=== PATIENT | female | born 1985 | race Caucasian/White ===

== ENCOUNTER 2022-03-04 03:36 | Outpatient (CLI) | payer MEDICAID, SELFPAY ==
[2022-03-04 14:11] LABS: HCG Quant, Pregnancy 84 mIU/mL (1-3)
== END 2022-03-04 03:37 | disposition home or self-care (01) ==
LOC: LBO 03:36
PROVIDERS: PCP Family Medicine; Visit Provider Obstetrics & Gynecology
DX: O03.4 Incomplete spontaneous abortion without complication (principal)
CPT/HCPCS: 36415; 84702

== ENCOUNTER 2022-03-18 03:50 | Outpatient (CLI) | payer MEDICAID, SELFPAY ==
[2022-03-18 14:36] LABS: HCG Quant, Pregnancy 1 mIU/mL (1-3)
== END 2022-03-18 03:51 | disposition home or self-care (01) ==
LOC: LBO 03:50
PROVIDERS: PCP Family Medicine; Visit Provider Obstetrics & Gynecology
DX: O03.4 Incomplete spontaneous abortion without complication (principal)
CPT/HCPCS: 36415; 84702

== ENCOUNTER 2022-08-15 09:32 | Outpatient (CLI) | payer BC, SELFPAY ==
[2022-08-15 10:07] LABS: Abs Immature Grans 0.09 10^3/uL (0.0-0.06); Absolute Eosinophil Count 0.15 10^3/uL (0.0-0.7); Absolute Lymphocyte Count 1.75 10^3/uL (1.2-3.4); Absolute Monocyte Count 0.51 10^3/uL (0.1-0.8); Basophils % 0.2; Eosinophils % 1.2; HCT 32.4 % (36.0-46.0); HGB 11.3 g/dL (11.2-15.7); Immature Grans % 0.7; Lymphocytes % 14.1; MCH 30.5 pg (27.0-33.0); MCHC 34.9 % (32.0-36.0); MCV 87 fL (80-95); MPV 11.1 fL (8.0-11.0); Monocytes % 4.1; Neutrophils % 79.7; Platelet Count 154 10^3/uL (130-400); RBC 3.71 10^6/uL (3.93-5.22); RDW 14.1 % (11.7-14.6); RDW-SD 44.4 fL
[2022-08-15 10:12] LABS: Absolute Basophil Count 0.02 10^3/uL (0.0-0.2); Absolute Neutrophil Count 9.88 10^3/uL (1.2-6.7)
[2022-08-15 10:16] LABS: Glucose,1 Hr (Glucola) 121 mg/dL (80-140)
[2022-08-17 15:20] LABS: HIV-1/2 Ag & Ab Screen Negative (Negative)
[2022-08-18 10:50] LABS: Varicella IgG Antibody Positive (See Note)
[2022-08-18 10:55] LABS: Rubella IgG Ab (UVM) Negative (See Note)
[2022-08-18 11:57] LABS: Hepatitis B Surface Ag Negative (Negative)
[2022-08-18 12:40] LABS: Hepatitis C Ab w Rflx HCV PCR Negative (Negative)
[2022-08-18 19:08] LABS: Syphilis IgG w/Reflex Nonreactive (Nonreactive)
== END 2022-08-15 09:33 | disposition home or self-care (01) ==
LOC: LBO 09:34
PROVIDERS: PCP Family Medicine; Visit Provider Advanced Practice Midwife
DX: Z34.91 Encounter for supervision of normal pregnancy, unspecified, first trimester (principal); Z3A.19 19 weeks gestation of pregnancy
CPT/HCPCS: 36415; 82950; 86787; 86803; 86850; 86900; 86901; 87340; 87389; 83655; 85025; 86762; 86780

== ENCOUNTER 2022-08-15 11:14 | Outpatient (REF) | payer BC, SELFPAY ==
[2022-08-15 13:29] LABS: *AMPHETAMINES SCREEN URINE Negative (Negative); *BARBITURATES SCREEN URINE Negative (Negative); *BENZODIAZEPINES SCREEN URINE Negative (Negative); Cannabinoids THC Negative (Negative); Cocaine Screen,Urine Negative (Negative); METHADONE URINE SCREEN Negative (Negative); OPIATES URINE SCREEN Negative (Negative)
[2022-08-15 13:31] LABS: Tricyclic Antidepressants Negative (Negative)
[2022-08-16 13:55] LABS: Chlamydia Result Negative (Negative); GC Result Negative (Negative)
[2022-08-22 12:22] LABS: Buprenorphine Negative ng/mL (Cutoff: 5.0); Norbuprenorphine Negative ng/mL (Cutoff: 2.5)
== END 2022-08-15 11:15 | disposition home or self-care (01) ==
LOC: LBN 11:14
PROVIDERS: PCP Family Medicine; Visit Provider Advanced Practice Midwife
DX: Z34.92 Encounter for supervision of normal pregnancy, unspecified, second trimester (principal); Z11.3 Encounter for screening for infections with a predominantly sexual mode of transmission; Z3A.19 19 weeks gestation of pregnancy
CPT/HCPCS: 80307; 80348; 87491; 87591; 87086

== ENCOUNTER 2022-10-08 05:30 | Outpatient (CLI) | payer BC, SELFPAY ==
[2022-10-08 10:42] LABS: HCT 31.2 % (36.0-46.0); HGB 10.3 g/dL (11.2-15.7); MCH 29.6 pg (27.0-33.0); MCV 90 fL (80-95); MPV 11.3 fL (8.0-11.0); Platelet Count 157 10^3/uL (130-400); RBC 3.48 10^6/uL (3.93-5.22); RDW 13.5 % (11.7-14.6); RDW-SD 43.7 fL; WBC 13.37 10^3/uL (4.4-10.8)
[2022-10-08 11:12] LABS: Glucose,1 Hr (Glucola) 127 mg/dL (80-140)
[2022-10-08 11:49] LABS: Ferritin 11 ng/mL (8-252)
== END 2022-10-08 05:31 | disposition home or self-care (01) ==
LOC: LBO 05:30
PROVIDERS: PCP Family Medicine; Visit Provider Advanced Practice Midwife
DX: D64.9 Anemia, unspecified (principal); Z34.92 Encounter for supervision of normal pregnancy, unspecified, second trimester
CPT/HCPCS: 36415; 82950; 85027; 82728

== ENCOUNTER 2022-12-10 15:56 | Outpatient (REF) | payer BC, SELFPAY ==
[2022-12-10 17:22] LABS: *AMPHETAMINES SCREEN URINE Negative (Negative); *BARBITURATES SCREEN URINE Negative (Negative); *BENZODIAZEPINES SCREEN URINE Negative (Negative); Cannabinoids THC Negative (Negative); Cocaine Screen,Urine Negative (Negative); METHADONE URINE SCREEN Negative (Negative); OPIATES URINE SCREEN Negative (Negative)
[2022-12-10 17:23] LABS: Tricyclic Antidepressants Negative (Negative)
[2022-12-17 10:11] LABS: Buprenorphine Negative ng/mL (Cutoff: 5.0); Norbuprenorphine Negative ng/mL (Cutoff: 2.5)
== END 2022-12-10 15:57 | disposition home or self-care (01) ==
LOC: LBN 15:56
PROVIDERS: PCP Family Medicine; Visit Provider Advanced Practice Midwife
DX: Z34.93 Encounter for supervision of normal pregnancy, unspecified, third trimester (principal); Z3A.36 36 weeks gestation of pregnancy
CPT/HCPCS: 80307; 80348

== ENCOUNTER 2022-12-30 14:00 | Inpatient (IN) | payer BC, SELFPAY ==
[2022-12-30] VITALS (65 sets, daily range): BP systolic 101–133; BP diastolic 50–66; PULSE 55–99; RESP 16–21; TEMP 36.5–36.9; O2SAT 94–100; BMI 26.6
--- NOTE | 2022-12-30 | DI.US_ITS ---
Exam(s) US OB DORINDA WEIGHT EXAM: US OB DORINDA WEIGHT CLINICAL HISTORY: macrosomia at 39 wks, prev C/S. TECHNIQUE: Transabdominal obstetrical ultrasound performed. COMPARISON: US US OB 2-3 TRIMESTER from 08/15/2022 US POCUS EXAM from 12/17/2022 FINDINGS:: Number of fetuses: One. position: Vertex. Fine toward the maternal left. Placental location: Posterior. No evidence of previa. BIOMETRIC DATA: BPD: 96mm = 39+ 2 weeks HC: 362mm = out of range, greater than 97th percentile. AC: 415mm = out of range, greater than 97th percentile. FL: 78 mm = 39+ 6 weeks EFW: 5032 Gms = greater than 97 % Composite Age: 39+ 4 weeks EDC: 02 January 2023 Heart Rate: 125BPM Amniotic fluid index: 35.8 cm. Polyhydramnios. IMPRESSION: head circumference, abdominal circumference and weight are above the 97th percentile. Polyhydr amnios also noted. DATA REPOSITORY:
--- NOTE | 2022-12-30 16:45 | HPE_ITS ---
Date of service: 12/30/22 Time of Service: 16:45 Assessment and Plan Assessment and plan (1) Advanced maternal age in multigravida: Status: Acute Assessment and plan: Patient is a 37-year-old female with advanced maternal age 4 para 3 with a history of 2 previous vaginal deliveries followed by an emergent section due to cord prolapse at term. is now complicated by the fact that she has suspected macrosomia with an estimated weight of 5400 g and polyhydramnios at 41 DORINDA. She is not a candidate for vaginal delivery either here or at a tertiary care center. She had been seen by maternal- medicine at [facility] who made these recommendations, and the patient subsequently left their facility. She returned to our care and after a lengthy conversation regar ding her risk, benefits, and alternatives, decision was made to proceed with a repeat section. The risks of infection, bleeding, injury to surrounding organs, risk of anesthesia, potential risk for hysterectomy, other potential complications were all explained to the patient and full informed consent was obtained. IV was established in 2 locations, laboratory studies were drawn including CBC and type and screen. Anesthesia is aware and has consented for her spinal anesthetic and general as a backup if necessary. Legend Maker was notified and will be present for delivery. A second surgeon will be available in case there is issue with surgical procedure, or bleeding. All of her questions were answered. (2) Previous section complicating : Status: Acute Assessment and plan: Not a candidate for trial of labor due to macrosomia polyhydramnios and unstable lie (3) Unstable lie of fetus: Status: Acute (4) Anemia: Status: Chronic Assessment and plan: Hemoglobin today of 10, will monitor closely (5) Polyhydramnios: Status: Acute (6) Large for gestational age fetus affecting management of mother: Status: Acute OB-HPI Labor/Delivery History of Present Illness Reason for Visit: NST Chief Complaint: Other ( macrosomia, polyhydramnios). DORA Calculator Estimated Delivery Date Method Current WG Current Estimate 01/03/23 LMP (Certain) 39w 3d Comments: This patient is a 37-year-old female who has been under the care of the midwifery service. She has a history of 2 previous vaginal deliveries, followed by an emergent section due to cord prolapse while in labor at approximately 6 cm. During this , she has declined much in the way of testing including SMA, cystic fibrosis, cell free DNA screening. She is rubella nonimmune declined vaccination. Throughout the course of her , baby has had somewhat of an unstable lie, though she has been motivated for the potential of a trial of labor after section. She been counseled regarding her risks in relation to this. Late last week, at 39 weeks, she was noted to have a fetus in the breech presentation and for this reason was sent again to [facility] for the possibility of external cephalic version. She was seen there today and the baby was noted to be cephalic, however there is a presenting cord and hand, and an estimated weight of 5400 g, along with significant polyhydramnios with an DORINDA of 41. She was told that she was not a candidate for a trial of labor given her circumstance and the recommendation was for section at [facility]. She declined and left the facility with need to consider her options further. Stephanie Downey, our nurse newspaper publisher called her to represent here for further conversation. She requested a repeat ultrasound which confirmed macrosomia and polyhydramnios along with cephalic position. I was called to consult the patient regarding plan of care and course of action. Over the course of approximately 50 minutes we discussed the risk of section, vaginal delivery, maintaining , risk of cord prolapse, risk of male presentation, risk of emergent delivery, risk of hemorrhage either with vaginal or section, and the recommended mode of delivery which is consistent with [facility] recommendation of a repeat section. Ultimately, after lengthy conversation, patient and her consented to her repeat section. They do have concerns as to whether she could potentially have a trial of labor in the future. This would be not available to her here, though at a tertiary care facility with different course of , may offer her the ability to have a vaginal in the future. She and her also understand that with this section, her risks are also significantly elevated which include but are not limited to infection, bleeding, injury to the surrounding organs, significant risk for hemorrhage due to hypotonicity and her maximally overstretched uterus, risk of thromboembolism, risk of need for hysterectomy. She will have 2 IVs started, and baseline laboratory studies including CBC and type and screen performed. History of Present Expected Delivery Route/Plan TOLAC/ - CNM FOB/ - Fernando Ramos (4th child together) BG Prefers to keep vaginal exams to a minimum in labor Would choose IOL @ [facility] over repeat C/S if delivery were indicated Declines GBS screening and PCN prophylaxis Specific Issues/Plan 1. Hx macrosomia, early glucola 121 2. Prior CS - Desires , x2 then c/s for cord prolapse 2a. MD consent process @ 30 wks 11/04/22 3. Entry to care at 18 wks 4. Declines SMA, cfDNA and CF testing 5. Rubella non-immune, discussed with [facility] declines vaccine 6. Hgb 10.3 at 27 wks, will increase her OTC iron supplement w/10 mg elemental iron. 11.7 @31.3wks. 6a. Hgb 10.3 - She had stopped taking liquid iron, she restarted it 12/10. 6b. At 38 wks hgb by fingerstick is 11.9 7. Unstable lie, confirm position at 37 weeks and offer referral for external version 7a. At 37 wks baby is cephalic, ROP, DORINDA 22.6 7b. At 38 wks, fetus in oblique position, head in LUQ; Referred to [facility] for ECV/IOL Informed Consent Informed Consent: Section Delivery (Which includes hysterectomy) Review of Systems All systems reviewed & are unremarkable except as noted in HPI and below Constitutional Constitutional: Reports system reviewed and no additional complaints, except as documented Eyes Eyes: Reports system reviewed and no additional complaints, except as documented ENT Ears, Nose, Mouth, and Throat: Reports system reviewed and no additional complaints, except as documented Cardiovascular Cardiovascular: Reports system reviewed and no additional complaints, except as documented Respiratory Respiratory: Reports system reviewed and no additional complaints, except as documented, Denies chest congestion and Denies cough Gastrointestinal Gastrointestinal: Reports system reviewed and no additional complaints, except as documented Genitourinary Genitourinary: Reports system reviewed and no additional complaints, except as documented Psychiatric Psychiatric: Reports system reviewed and no additional complaints, except as documented PFSH All Active Problems (Updated 12/30/22 @ 16:54 by Aliza Downing DO) Large for gestational age fetus affecting management of mother (Acute) Polyhydramnios (Acute) Oblique lie on examination (Acute) Unstable lie of fetus (Acute) (Acute) Previous section complicating (Acute) Advanced maternal age in multigravida (Acute) Anemia (Chronic) Medical History (Updated 12/30/22 @ 16:54 by Ailza Downing DO) Anemia affecting in third trimester (06/02/17) Surgical History (Updated 08/15/22 @ 10:18 by Gabriela Mcclellan CNM) section (06/17/17) Emergent LTCS for prolapsed cord. TalThompson LagunaJack. [id number]. Apgars 9/9. aoc/kk Family History (Updated 08/15/22 @ 09:12 by Gabriela Mcclellan CNM) Mother Cancer Melanoma Paternal Grandmother Dementia Maternal Grandfather Heart disease Diabetes Hypertension Stroke Social History (Updated 08/15/22 @ 09:14 by Gabriela Mcclellan CNM) Smoking/Tobacco Use Status: Never Smoking risk assessment performed?: Yes Alcohol Intake: never Drug use: Never Substance use type: does not use Adopted: No Caregiver/Support person: No Foster care: No Household members: spouse and children Housing: house Number of Children: 3 Communication Needs: None Do you need help understanding health information?: Never Pets and animals: Yes Pets and animals: cat(s) and farm animals Sexually active: Yes Do you think of yourself as: straight/heterosexual Current gender identity: male What is your relationship status?: How often do you talk on the phone with friends or family?: three or more times per week How often do you get together with friends or relatives?: three or more times per week Panel score (0-1 are the most socially isolated patients): 2 What type of physical activity do you participate in: walking Duration: 15-30 minutes/day Frequency: 1-2 times per week Special sara needs: No Agree to transfusion: Yes Seatbelt use: always Helmet use: Yes Drive 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 Date GA/Weeks # Preg Succ Route Wgt Sex Labor Lgth Anesth esia Location [facility] 01/02/11 41 No Yes vaginal 9 lb 2 oz Female 11 01/16/14 41 No Yes vaginal 9 lb 7 oz Male 3 1/2 06/17/17 Yes 10 lb [address] Thompson Morley 02/26/[address] Kraus r Delivery Date: 01/02/11 Last Updated by: Gabriela Mcclellan CNM waterbirth in [place], PROM X 24 hours prior to labor, no augmentation Nela Delivery Date: 01/16/14 Last Updated by: Gabriela Mcclellan CNM home , [place] Delivery Date: 06/17/17 Last Updated by: Gabriela Cooper CNM ROM 17 hours, cord prolapse immediately after VE then emergent C/S. Jack. General anesthesia Delivery Date: 02/26/22 Last Updated by: Gabriela Mcclellan CNM SAB no meds or complications Meds Allergies and Home Medications Allergies Allergy/AdvReac Type Severity Reaction Status Date / Time No Known Allergies Allergy Verified 12/25/22 13:41 Home Medications Medication Instructions Recorded Confirmed Type Iron DAILY 06/23/17 Clinic magnesium glycinate 100 mg tablet 200 mg PO DAILY 08/07/22 12/30/22 History elemental iron PO 10/21/22 12/30/22 History liver capsules 4 cap PO DAILY 10/21/22 12/30/22 History Exam Physical Exam Vital signs: Temp Pulse Resp BP 97.9 F 86 16 106/56 L 12/30/22 15:09 12/30/22 15:09 12/30/22 15:09 12/30/22 15:09 Vital Signs Reviewed: Yes Constitutional Constitutional: no acute distress and average body habitus Detailed Labor and Delivery Exam Lyons Score: Cervical Points Exam 0 1 2 3 Dilation Closed 1-2cm 3-4 cm 5-6cm Effacement 0-30% 40-50% 60-70% 80% Consistency Firm Medium Soft Station -3 -2 -1,0 +1,+2 Position Posterior Mid Anterior Amniotic Membrane Status: Intact Fetus A Heart Rate Baseline: 143 Monitor Accelerations: 15 X 15 Monitor Decelerations: None Variability: Moderate (6-25 BPM) Presentation: Cephalic Categories: Category I HEENT Exam HEENT Exam: Normal Neck Exam Neck Exam: Normal Respiratory Exam Respiratory Exam: Normal Cardiovascular Exam Cardiovascular Exam: Normal Detailed Abdominal Exam Comments: Marked distention of her gravid uterus. Uterine contractions approximately 2 to 3 minutes, palpate as mild, however uterus is significantly over distended Extremities Exam Extremities Exam: Normal Neurological Exam Neurological Exam: Normal Psychiatric Exam Psychiatric Exam: Normal Results Results Group Beta Strep: Not Done Blood Type: O+ Rubella Status: Nonimmune Varicella Immunity: Immune Risk Assessment Risk for Shoulder Dystocia Historical/Initial OB: NEGATIVE FOR: Pelvic Abnormality, Pre- BMI>30, Previous Shoulder Dystocia or Previous Macrosomia 40 Weeks: POSTIVE FOR: EFW> 4500 gms Date/Initial: 08/15/22 K[facility] Delivery Plan @ 40 wks: Repeat section Risk for Pre-Eclampsia Yes, if one or more: NEGATIVE FOR: Hx Pre-E/Gest HTN, Chronic HTN, Multiple Gestation, Pre-gestational DM, Renal Disease, Systemic Lupus or APA Syndrome Yes, if 2 or more: POSITIVE FOR: Age>= 35 yrs; NEGATIVE FOR: Nulliparity, >10yr btwn pregnancies, BMI>30, ethinicty, Mother/Sister w/ Pre-E or Previous IUGR Risk for Post- Hemorrhage Initial: NEGATIVE FOR: Multiple Gestation, Previous PPH, Known Clotting Deficiency, Grand Multiparity or Anticoagulation 40 Weeks: POSITIVE FOR: Polyhydraminios and EFW>4500gms At Risk?: Yes Interventions: Type and screen, 2 large-bore IVs, oxytocics in the room, 2 surgeons for Counseled re: Active Management: Yes Date/Initials: KAT 12/30/2022 Risks Reviewed Risks Reviewed Upon Admission: Yes
[2022-12-30 16:47] LABS: HCT 39.3 % (36.0-46.0); HGB 13.2 g/dL (11.2-15.7); MCH 28.8 pg (27.0-33.0); MCHC 33.6 % (32.0-36.0); MCV 86 fL (80-95); MPV 11.9 fL (8.0-11.0); Platelet Count 161 10^3/uL (130-400); RBC 4.59 10^6/uL (3.93-5.22); RDW 15.4 % (11.7-14.6); RDW-SD 47.7 fL; WBC 12.98 10^3/uL (4.4-10.8)
[2022-12-30] MEDS: AZITHROMYCIN 500 MG in Normal Saline 250 ML 250 MG IVPB (17:00)
[2022-12-30] MEDS: Sodium Citrate 30 ML CUP PO (17:00)
--- NOTE | 2022-12-30 17:05 | ANES.PREOP_ITS ---
General Info Date of Service Date Performed: 12/30/22 Height: 5 ft 7 in Weight: 77.167 kg Body Mass Index (BMI): 26.6 Surgical Procedure: Operation Date: 12/30/22 17:30 Proposed Procedure Side Surgeon p Section Aliza Downing DO Actual Procedure Side Surgeon p Section Aliza Downing DO Pre-Op Diagnosis Post-Op Diagnosis CORD PROLAPSE TERM Meds Allergies and Home Medications Allergies Allergy/AdvReac Type Severity Reaction Status Date / Time No Known Allergies Allergy Verified 12/25/22 13:41 Home Medication Medication Instructions Recorded magnesium glycinate 100 mg tablet 200 mg PO DAILY 08/07/22 elemental iron PO 10/21/22 liver capsules 4 cap PO DAILY 10/21/22 Current Visit Medications: Current Medications Generic Name Dose Route Start Last Admin Trade Name Freq PRN Reason Stop Dose Admin Citric Acid/Sodium Citrate 30 ml 12/30/22 17:00 Sodium Citrate 30 Ml Cup PO PREOP LILY Cefazolin Sodium/Dextrose 2 gm in 50 mls @ 100 mls/hr 12/30/22 16:30 Ancef Duplex IVPB PREOP LILY Azithromycin 500 mg/ Sodium 250 mls @ 250 mls/hr 12/30/22 16:30 Chloride IVPB PREOP LILY Ringer's Solution 1,000 mls @ 200 mls/hr 12/30/22 16:30 IV INFUSION LILY Sodium Chloride 500 mls @ 0 mls/hr 12/30/22 16:19 Saline 500ml Bag IV PRN PRN As Directed IV Miscellaneous Supplies 1 each 12/30/22 16:30 Iv Access IV DIRECTED LILY Sodium Chloride 0 ml 12/30/22 16:19 Normal Saline Flush 10 Ml Syr IVP PRN PRN PFSH Active Problems Active Problems: Problem Status Onset Code Oblique lie on examination O32.2XX0 Unstable lie of fetus O32.0XX0 Z34.90 Previous section complicating O34.219 Advanced maternal age in multigravida O09.529 Anemia D64.9 Medical History Medical History (Updated 12/30/22 @ 16:54 by Aliza Downing DO) Anemia affecting in third trimester (06/02/17) Surgical History Surgical History (Updated 08/15/22 @ 10:18 by Gabriela Mcclellan CNM) section (06/17/17) Emergent LTCS for prolapsed cord. Abdullahi Santiago. [id number]. Apgars 9/9. aoc/kk Tobacco Smoking/Tobacco Use Status: Never Alcohol Alcohol Intake: never Substance Use Substance use: Never Substance use type: does not use Prental History History 5 Para 3 Hx # Term Pregnancies 3 Multiple births 0 Hx # Pregnancies 0 Ectopic pregnancies 0 AB induced 0 Hx Number of Living Children 3 AB spontaneous 1 Past Pregnancies Del. Date GA/Weeks # Preg Succ Route Wgt Sex Labor Lgth Anesth esia Location Prov Complic 01/02/11 41 No Yes vaginal 4139.03 g Female 11 01/16/14 41 No Yes vaginal 4280.778 g Male 3 05/1906/17/17 Yes 4734.[address] Morley 02/26/[address] Efra barroso Delivery Date: 01/02/11 Last Updated by: Gabriela Mcclellan CNM waterbirth in [place], PROM X 24 hours prior to labor, no augmentation Nela Delivery Date: 01/16/14 Last Updated by: Gabriela Mcclellan CNM home [place] Delivery Date: 06/17/17 Last Updated by: Gabriela Cooper CNM ROM 17 hours, cord prolapse immediately after VE then emergent C/S. Jack. General anesthesia Delivery Date: 02/26/22 Last Updated by: Gabriela Mcclellan CNM SAB no meds or complications Vital Signs and Lab Results Vital Signs Most Recent Vital Signs in EMR: Most Recent Vital Signs Temp Pulse Resp BP 36.6 C 86 16 106/56 L 12/30/22 15:09 12/30/22 15:09 12/30/22 15:09 12/30/22 15:09 Lab Results 12/30/22 16:38 Blood Type / Crossmatch: No Data to Display Complete Blood Count: White Blood Count 12.98 10^3/uL (4.4-10.8) H 12/30/22 16:38 Red Blood Count 4.59 10^6/uL (3.93-5.22) 12/30/22 16:38 Hemoglobin 13.2 g/dL (11.2-15.7) 12/30/22 16:38 Hematocrit 39.3 % (36.0-46.0) 12/30/22 16:38 Platelet Count 161 10^3/uL (130-400) 12/30/22 16:38 Complete Metabolic Panel: No Data to Display Liver Function Panel: No Data to Display Coagulation Panel: No Data to Display Cardiac Panel: No Data to Display Arterial Blood Gas: No Data to Display Venous Blood Gas: No Data to Display Pancreas Panel: 2 No Data to Display Thyroid Panel: No Data to Display Infectious Disease: No Data to Display Blood Cultures: No Data to Display Toxicology Panel: Urine Amphetamines Screen Negative (Negative) 12/10/22 15:30 Urine Benzodiazepines Screen Negative (Negative) 12/10/22 15:3 0 Urine Barbiturates Screen Negative (Negative) 12/10/22 15:30 Urine Cocaine Screen Negative (Negative) 12/10/22 15:30 Urine Methadone Screen Negative (Negative) 12/10/22 15:30 Urine Opiates Screen Negative (Negative) 12/10/22 15:30 Ur Tricyclic Antidepressants Screen Negative (Negative) 15:30 Ur Tetrahydrocannabinol (THC) Scrn Negative (Negative) 3 15:30 Panel: No Data to Display Anesthesia Assessment and Plan Anesthesia History Personal History: No History of Anesthesia Complications Family History: No Family History of Anesthesia Complications Exercise Tolerance Exercise Tolerance: Metabolic Equivalents>4 Pertinent Negatives Pertinent Negatives: No Symptoms of GERD, No Major Cardiovascular Symptoms or Complaints and No Major Pulmonary Symptoms or Complaints Cardiac & Pulmonary Exam Cardiac Exam: Normal S1/S2 Heart Sounds Pulmonary Exam: Clear Bilateral Breath Sounds Implantable Cardiac Device Does patient have a Pacemaker or an ICD?: No Airway Exam Known Difficult Airway: No Mallampati Class: 3 Mouth Opening: Normal (> 3cm) Thyromental Distance: Greater than 3 cm Neck Range of Motion: Full ROM Neck Circumference: Normal Teeth Condition: Normal Dentition ASA Classification ASA Score: ASA 2 Emergency Case?: Yes NPO Status NPO Status: Full Stomach Status Status: Confirmed Anesthesia Plan Resuscitation Status: Full Code Anesthesia Technique: Spinal Anesthesia Airway Planned: Natural Airway Pain Management: Intrathecal Analgesia Monitors Used: Standard Monitors Preoperative Comments:: (2) [address]g PIV[address] in place
[2022-12-30] MEDS: ceFAZolin 2 GM/50 ML BAG IVPB (17:24)
[2022-12-30] MEDS: Lactated Ringers 1,000 ML 80 ML IV (17:38)
--- NOTE | 2022-12-30 18:06 | PLAC_PTH ---
PATIENT: Dewey Christy LOC: OBS U#:[id number] AGE/SX: 37/F ROOM: OBS.303 RE12/30/[address]: Aliza Downing DO : 1985 BED: A DIS: 01/01/2023 SPEC #: [id number] RECD: 12/31/22 09:52 STATUS: SOUNicho REQ #: [id number] WILSON: 12/30/22 18:[address]: Aliza Downing DEPT: Surgical Specimen RECD BY: Thea Horne ENTERED: 12/31/22 09:55 SP TYPE: PLAC OTHR DR: Yuli Harper V Tissues: 1 - PLACENTA (3RD TRIMESTER) Procedures: GROSS AND MICRO LEVEL 5 Comments: [id number]
[2022-12-30] MEDS: Bupivacaine 0.25% Pres-Free 30 ML VIAL (18:09)
--- NOTE | 2022-12-30 18:52 | PDOC.OPNB_ITS ---
Date of service: 12/30/22 Time of Service: 18:52 Operative Note Operative Note Delivery Method: Unscheduled STAT: No and Repeat Previous LT Incision: Yes DATE OF PROCEDURE: 12/30/22 PRE-OP DIAGNOSES: at 39 weeks and 5 days. EFW 5400 g, polyhydramnios, history C/S PROCEDURE: Repeat low-transverse section SURGEON: Aliza Downing Joint Cleaning Machine Operator: Lyric Jaimes Anesthesia: GETA, local and spinal Estimated blood loss (mL): 500 Complications: None Patient was transported to: PACU Patient's condition: stable Indications: Suspected macrosomia with estimated weight of 5400 g, polyhydramnios with amniotic fluid index of 40, unstable lie, prior section at 39-5/7 weeks gestation, Findings: Delivery of a viable female infant, marked polyhydramnios, normal-appearing tubes, ovaries, uterus Procedure Description: Patient was seen for consultation at [facility] today for the possibility of an external cephalic version in light of her previous section. On ultrasound patient was noted to be in the cephalic presentation, however had an estimated weight of 5400 g with an amniotic fluid index of 41. The recommendation by the maternal- medicine team was for repeat section due to high risk for labor abnormality, cord prolapse, Mal presentation, over distended uterus, macrosomia. Patient opted not to be delivered at that point. She represented to our institution for further evaluation. She had surveillance with nonstress test which was reactive and was noted to be deyanira approximately every 3 minutes. She had a repeat ultrasound performed here confirming an estimated weight of approximately 5000 g with an amniotic fluid index in the consistent range of 39. After lengthy conversation with the patient, and her regarding risk benefits and alternatives of delivery versus vaginal , the fact that she is not a candidate for a vaginal delivery here, or at a tertiary care facility for that matter, and that repeat section would be optimal. She is understood the risk of infection, bleeding, injury to surrounding organs, risk of anesthesia, risk of thromboembolism, and was consented for repeat section possible hysterectomy. She was taken the operating suite with 2 large-bore IVs running. All appropriate precautions were taken for the possibility of hemorrhage due to uterine overdistention, and increased risk for amniotic fluid embolism. We had to obstetricians, sourcing assistant, and general anesthesia on standby. Pediatrics was present for delivery as well. 2 anesthetists were present for analgesia. She was initially placed in the seated position and spinal anesthesia administered. She was then placed in the dorsal supine position with a leftward tilt. She had pneumatic compression stockings for DVT prophylaxis, vaginal preparation and Cm catheter inserted. She received Zithromax, 500 mg and 2 g of Ancef for surgical site prophylaxis. With all of these things in place, analgesia was tested and found to be inadequate. In light of the appropriate spinal placement, with an adequate analgesia the decision was made for general anesthesia. Endotracheal intubation performed for the admi nistration of general anesthesia and at this point a Pfannenstiel skin incision was made carried down to the underlying fascia which was nicked in the midline and extended laterally. The peritoneum was identified and entered bluntly and the bladder blade was inserted. A low transverse uterine incision was made with a scalpel and extended bluntly laterally. There was artificial rupture of membranes for copious amounts of clear fluid, approximately 3 L. The vertex was then delivered through the incision. There is no evidence of nuchal cord. Shoulders followed with ease. Three-vessel cord was noted clamped x2 and cut and the infant was handed off to the waiting non food receiving clerk. At this point cord blood gases and cord blood sample were both obtained and the placenta was manually expressed from the uterus. At this point the uterus was then exteriorized and cleared of all clot and debris. She received oxytocin for uterine tonicity. The uterine incision was closed using 0 Vicryl suture first in a running locked fashion, followed by a second layer that was imbricating. The abdomen was then irrigated with copious amounts of normal saline and incision was reinspected and noted to be hemostatic. The fascial incision was then closed after a single stitch was placed at the rectus muscle for an area that was not hemostatic. The fascial incision was closed with 0 Vicryl suture in a running fashion. Subcutaneous tissue irrigated with copious amounts of normal saline and 3-0 Vicryl used to close the subcu space. A subcuticular stitch of 4-0 undyed Monocryl was placed and Steri-Strips and a sterile dressing were placed over the incision. The patient then awoke from anesthesia without difficulty and taken to the postanesthesia care unit in stable condition with a Cm catheter draining clear yellow urine. Findings: Delivery of a viable female infant. Significant polyhydramnios. Normal-appearing tubes, ovaries, uterus Complications: None apparent Fluids: Crystalloid per anesthesia Pathology: Placenta for examination EBL: 500 mL. Gestational Age in Weeks/Days: 39 Weeks and 3 Days Infant Gender: Female
--- NOTE | 2022-12-30 19:22 | W.ANESPOSTOP ---
Postoperative Evaluation Date, Time and Location Date Performed: 12/30/22 Time Performed: 19:20 Patient Location: Obstetrics Vital Signs Most Recent Imported Vital Signs: Most Recent Vital Signs Temp Pulse Resp BP Pulse Ox 36.5 C 71 21 123/58 L 98 12/30/22 19:05 12/30/22 19:20 12/30/22 19:05 12/30/22 19:20 12/30/22 19:20 Pain Score Most Recent Pain Score: Most Recent Pain Score Pain Level 0 12/30/22 19:05 Assessment Mental Status: Awake (Alert & Oriented to Patient Baseline) Airway and Respiratory Function: Patent airway with normal (patient baseline) respiratory exam Cardiovascular Function: Hemodynamically Stable Hydration Status: Adequately Hydrated Nausea & Vomiting: No Nausea or Vomiting Pain: Pain is tolerable per patient Peripheral Nerve Block: Patient did not receive a nerve block
[2022-12-30] MEDS: Lactated Ringers 1,000 ML 120 ML IV (19:42)
[2022-12-30] MEDS: Oxytocin/Normal Saline 30 UNIT/500 ML BAG 95 UNITS IV (19:43)
[2022-12-30] MEDS: oxyCODONE 5 mg/Acetaminophen 325 mg TAB PO (20:30)
[2022-12-31] VITALS (87 sets, daily range): BP systolic 109–114; BP diastolic 59–77; PULSE 70–104; RESP 14–20; TEMP 36.4–37; O2SAT 95–100
[2022-12-31] MEDS: Ketorolac 30 MG/ML VIAL IVP ×3 (00:08→11:55)
[2022-12-31] MEDS: Normal Saline Flush 10 ML SYR IVP ×2 (00:09→05:52)
[2022-12-31 07:30] LABS: Abs Immature Grans 0.07 10^3/uL (0.0-0.06); Absolute Eosinophil Count 0.06 10^3/uL (0.0-0.7); Absolute Lymphocyte Count 0.63 10^3/uL (1.2-3.4); Absolute Monocyte Count 0.64 10^3/uL (0.1-0.8); Basophils % 0.3; Eosinophils % 0.5; HGB 10.8 g/dL (11.2-15.7); Immature Grans % 0.6; Lymphocytes % 5.3; MCHC 33.8 % (32.0-36.0); MCV 86 fL (80-95); Monocytes % 5.4; Neutrophils % 87.9; Platelet Count 121 10^3/uL (130-400); RBC 3.73 10^6/uL (3.93-5.22); RDW 15.5 % (11.7-14.6); RDW-SD 47.8 fL; WBC 11.93 10^3/uL (4.4-10.8)
[2022-12-31 07:32] LABS: Absolute Basophil Count 0.04 10^3/uL (0.0-0.2); Absolute Neutrophil Count 10.49 10^3/uL (1.2-6.7)
[2022-12-31 07:49] LABS: Glucose 82 mg/dL (74-106)
--- NOTE | 2022-12-31 08:05 | W.PM.OBPNV1 ---
Date of service: 12/31/22 Time of Service: 08:05 Assessment and Plan Assessment and plan (1) Status post repeat low transverse section: Status: Acute Assessment and plan: Patient is postoperative day #1 status post repeat low transverse section for suspected macrosomia and significant polyhydramnios. She did need general anesthesia and is doing well this morning. Cm catheter is in place and will be removed. She is tolerating regular diet. Vital signs are stable. Morning hemoglobin is stable at 10.8. Fasting blood glucose is 86. All of her questions were answered. We will have routine postoperative care and I would anticipate discharge home possibly in 24 hours. All questions were answered. Subjective Subjective baby status: Nursing well, Rooming in and Strong Bonding Observed Narrative: Patient seen and examined this morning. Overall doing well. Events of yesterday discussed at length. Patient is comfortable. Breast-feeding without difficulty. Cm catheter is in place and will come out this morning when she is up and ambulatory. Exam Physical Exam Vital signs: Temp Pulse Resp BP Pulse Ox 98.1 F 83 18 109/72 96 12/31/22 07:41 12/31/22 07:41 12/31/22 07:41 12/31/22 07:41 12/31/22 07:41 Vital Signs Reviewed: Yes Constitutional Constitutional: no acute distress HEENT Exam HEENT Exam: Normal Neck Exam Neck Exam: Normal Respiratory Exam Respiratory Exam: Normal Cardiovascular Exam Cardiovascular Exam: Normal Abdominal Exam Comments: Soft, nondistended. Incision dressed with Mepilex dressing Fundal Exam Fundus: Below Umbilicus and Firm Extremities Exam Extremity Exam: Normal; negative Calf Tenderness or Edema Skin Exam Skin Exam: Normal Neurological Exam Neurological Exam: Normal Psychiatric Exam Psychiatric Exam: Normal Results Hemoglobin/Hematocrit: Hgb 10.8 g/dL (11.2-15.7) L D 12/31/22 07:05 Hct 32.0 % (36.0-46.0) L 12/31/22 07:05 Abnormal Lab Findings: Abnormal Labs 12/30/22 12/31/22 16:38 07:05 WBC 12.98 H 11.93 H RBC 3.73 L Hgb 10.8 L D Hct 32.0 L RDW 15.4 H 15.5 H Plt Count 121 L MPV 11.9 H 12.0 H Absolute Neutrophils 10.49 H Absolute Lymphocytes 0.63 L
[2022-12-31] MEDS: Acetaminophen 325 MG TAB 650 MG PO (18:08)
[2022-12-31] MEDS: Ibuprofen 600 MG TAB PO (18:08)
[2023-01-01] MEDS: Acetaminophen 325 MG TAB 650 MG PO ×2 (00:57→06:42)
[2023-01-01] MEDS: Ibuprofen 600 MG TAB PO ×2 (00:57→06:42)
[2023-01-01 01:00] VITALS: BP 114/62; PULSE 74; RESP 16; TEMP 36.9; O2SAT 97
--- NOTE | 2023-01-01 06:47 | NUR.NOTE ---
Nursing Note:Mother is independent with self care and care. Mother reports mild pain from surgery and managing well with Tylenol and Ibuprofen this shift.
[2023-01-01 08:10] VITALS: BP 115/80; PULSE 86; RESP 16; TEMP 36.8; O2SAT 96
--- NOTE | 2023-01-01 08:56 | W.PM.OBPNV1 ---
Date of service: 01/01/23 Time of Service: 08:59 Assessment and Plan Assessment and plan (1) Status post repeat low transverse section: Status: Acute Assessment and plan: Plan discharge to home today. (2) Oblique lie on examination: Status: Acute Subjective Subjective Interval history: POD 2 RC/S viable female infant named Zeina. Patient comments: Pain well controlled, Tolerating diet and Flatus present Patient's Mood: Good. Desires to go home this afternoon. [place] baby status: Doing well, Nursing well, Rooming in and Strong Bonding Observed feeding status: Exclusively breast feeding Exam Physical Exam Vital signs: Temp Pulse Resp BP Pulse Ox 98.2 F 86 16 115/80 96 01/01/23 08:10 01/01/23 08:10 01/01/23 08:10 01/01/23 08:10 01/01/23 08:10 Vital Signs Reviewed: Yes Constitutional Constitutional: no acute distress HEENT Exam HEENT Exam: Not Done Neck Exam Neck Exam: Normal Respiratory Exam Respiratory Exam: Normal Cardiovascular Exam Cardiovascular Exam: Normal Abdominal Exam Abdomen: Diastasis Fundal Exam Fundus: Below Umbilicus Rectal Exam Rectal Exam: Not Done Extremities Exam Extremity Exam: Normal, Edema (1+ bialteral pretibial non-pitting edema. ), Pulses Intact and Warm to Touch Back/Spine/Pelvis Exam Back Exam: Normal Skin Exam Skin Exam: Normal Neurological Exam Neurological Exam: Normal Psychiatric Exam Psychiatric Exam: Normal Results Hemoglobin/Hematocrit: Hgb 10.8 g/dL (11.2-15.7) L D 12/31/22 07:05 Hct 32.0 % (36.0-46.0) L 12/31/22 07:05 Abnormal Lab Findings: Abnormal Labs 12/30/22 12/31/22 16:38 07:05 WBC 12.98 H 11.93 H RBC 3.73 L Hgb 10.8 L D Hct 32.0 L RDW 15.4 H 15.5 H Plt Count 121 L MPV 11.9 H 12.0 H Absolute Neutrophils 10.49 H Absolute Lymphocytes 0.63 L
--- NOTE | 2023-01-01 09:06 | DSE_ITS ---
Date of service: 01/01/23 Time of Service: 09:06 DS: Diagnosis Discharge Diagnosis (1) Status post repeat low transverse section: Status: Acute (2) Oblique lie on examination: Status: Acute (3) Polyhydramnios: Status: Acute Discharge Plan Disposition Patient Disposition: Home Condition: Improving Discharge Details Reason For Visit: Delivery Admit Date/Time: 12/30/22 14:00 Admit Provider: Aliza Downing Attending Provider: Aliza Downing Primary Care Provider: Yuli Harper V Hospital Course Hospital Course: Patient is a 37-year-old 4 now para 3 with a history of 2 previous vaginal deliveries followed by an emergent section due to cord prolapse at term.? This complicated by suspected macrosomia with an estimated weight of 5400 g and 41 DORINDA.? She was not a candidate for vaginal delivery either at [facility] or a tertiary care center.? Underwent an uncomplicated rLTCS on 12/30/22 under general anesthesia with delivery of viable female wt 4355gm. Parents intend to name her Zeina. Postop hemoglobin 10.8. POD1 Fasting blood glucose is 86.? Discharged to home on POD 2 successfully breast feeding. Surgical dressing intact. Pt instructed to remove dressing 01/05/23. She will return to office in 2 weeks for intial postop check. F/U with CNM service in 6weeks. Ibuprofen 600mg every 6 hours for pain along with Acetaminophen 325mg ever 6 hours for pain. They may be taken together or the doses alternated. Home Meds and New Rx's Prescriptions: No Action magnesium glycinate 100 mg tablet 200 mg PO DAILY liver capsules 4 cap PO DAILY elemental iron PO iron DAILY 0RF Discharge Instructions Additional Instructions: Please call the office to schedule a follow up appointment with Dr. Downing in 2 weeks. You may remove your bandage on Thursday01/05/23. Keep the small white tape in place. If it falls of that is ok. Stand Alone Forms: BC Discharge Instruc, BC Inst ructions Activity:: Activity as Tolerated Equipment/Supplies:: No Equipment Needed Diet:: As Tolerated OB:DS Summary Summary Delivery Method: Repeat Episiotomy Description: None Laceration Description: None Laceration Extension: N/A complications OB DS: none Contraception Discussed Contraception Discussed: Yes (Uses NFP. Successful in the past.), Infant Gender-Baby A: Female Disposition of Baby A: Home Status at Discharge Functional status at discharge: independent ambulation Overall status at discharge: patient is progressing back to baseline Mental Status: mental status grossly normal Speech and Movement: speech and movement normal Mood: congruent mood Affect: normal affect Time Spent with Patient providing and/or coordinating discharge services: Less than 30 minutes Exam Physical Exam Vital signs: Temp Pulse Resp BP Pulse Ox 98.2 F 86 16 115/80 96 01/01/23 08:10 01/01/23 08:10 01/01/23 08:10 01/01/23 08:10 01/01/23 08:10 Vital Signs Reviewed: Yes Constitutional Constitutional: no acute distress HEENT Exam HEENT Exam: Normal Neck Exam Neck Exam: Not Done Respiratory Exam Respiratory Exam: Normal Cardiovascular Exam Cardiovascular Exam: Normal Abdominal Exam Abdomen: Diastasis Fundal Exam Fundus: Below Umbilicus Rectal Exam Rectal Exam: Not Done Extremities Exam Extremity Exam: Normal, Edema, Pulses Intact and Normal Capillary Refill Back/Spine/Pelvis Exam Back Exam: Normal Skin Exam Skin Exam: Normal Neurological Exam Neurological Exam: Normal Psychiatric Exam Psychiatric Exam: Normal PFSH All Active Problems (Updated 12/30/22 @ 16:54 by Aliza Downing DO) section (Acute 06/17/17) 2018. Emergent LTCS for prolapsed cord. Abdullahi Santiago. [id number]. Apgars 9/9. 8/. unscheduled rLTCS for poly, unstable lie, macrosomnia. F. 4355gm. Status post repeat low transverse section (Acute) Large for gestational age fetus affecting management of mother (Acute) Polyhydramnios (Acute) Oblique lie on examination (Acute) Unstable lie of fetus (Acute) (Acute) Previous section complicating (Acute) Advanced maternal age in multigravida (Acute) Anemia (Chronic) Medical History (Updated 12/30/22 @ 16:54 by Aliza Downing DO) Anemia affecting in third trimester (06/02/17) Family History (Updated 08/15/22 @ 09:12 by Gabriela Mcclellan CNM) Mother Cancer Melanoma Paternal Grandmother Dementia Maternal Grandfather Heart disease Diabetes Hypertension Stroke Social History (Updated 08/15/22 @ 09:14 by Gabriela Mcclellan CNM) Smoking/Tobacco Use Status: Never Smoking risk assessment performed?: Yes Alcohol Intake: never Drug use: Never Substance use type: does not use Adopted: No Caregiver/Support person: No Foster care: No Household members: spouse and children Housing: house Number of Children: 3 Communication Needs: None Do you need help understanding health information?: Never Pets and animals: Yes Pets and animals: cat(s) and farm animals Sexually active: Yes Do you think of yourself as: straight/heterosexual Current gender identity: male What is your relationship status?: How often do you talk on the phone with friends or family?: three or more times per week How often do you get together with friends or relatives?: three or more times per week Panel score (0-1 are the most socially isolated patients): 2 What type of physical activity do you participate in: walking Duration: 15-30 minutes/day Frequency: 1-2 times per week Special sara needs: No Agree to transfusion: Yes Seatbelt use: always Helmet use: Yes Drive intox or ride w/intox 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 Date GA/Weeks # Preg Succ Route Wgt Sex Labor Lgth Anesth esia Location [facility] 01/02/11 41 No Yes vaginal 9 lb 2 oz Female 11 01/16/14 41 No Yes vaginal 9 lb 7 oz Male 3 1/2 06/17/17 Yes 10 lb [address] Thompson Morley 02/26/[address] Efra barroso 12/30/22 39 No Yes 9 lb 9.618 oz Female KJ/LB Delivery Date: 01/02/11 Last Updated by: Gabriela Mcclellan CNM waterbirth in [place], PROM X 24 hours prior to labor, no augmentation Nela Delivery Date: 01/16/14 Last Updated by: Gabriela Mcclellan CNM home [place] Delivery Date: 06/17/17 Last Updated by: Gabriela Cooper CNM ROM 17 hours, cord prolapse immediately after VE then emergent C/S. Jack. General anesthesia Delivery Date: 02/26/22 Last Updated by: Gabriela Mcclellan CNM SAB no meds or complications Delivery Date: 12/30/22 Last Updated by: Yumiko Morley MD unscheduled rLTCS after dx with DORINDA 40, and EFW 5000 gm. Pt advised to not attempt . Zeina. DS: Data Vitals/I&O Vitals and I&O: Vital Signs Temperature 98.2 F 01/01/23 08:10 Temperature 97.9 F 12/30/22 15:22 Temperature Source Oral 01/01/23 08:10 Pulse 86 01/01/23 08:10 Pulse 86 12/30/22 15:22 Pulse Rhythm Regular 01/01/23 08:10 Respiratory Rate 16 01/01/23 08:10 Blood Pressure 115/80 01/01/23 08:10 Blood Pressure 106/56 12/30/22 15:22 Blood Pressure Mean 91 01/01/23 08:10 Pulse Oximetry 96 01/01/23 08:10 Oxygen Delivery Method Room Air 12/30/22 19:05 Pain Level 3 01/01/23 08:10 Intake & Output 12/31/22 12/31/22 01/01/23 11:59 23:59 11:59 Intake Total 2430 / 2430 Output Total 1600 / 3750 2150 / 3750 Balance 830 / -1320 -2150 / -1320 Intake: IV 1430 / 1430 Oral 1000 / 1000 Output: Urine 1600 / 3750 2150 / 3750 Other: Urine Color Yellow Urine Appearance Clear
== END 2023-01-01 15:00 | disposition home or self-care (01) | DRG 788 ==
LOC: OBS 12-31 08:59 → BCD 12-31 09:50 → OBS 12-31 09:51
PROVIDERS: Admitting Provider Obstetrics & Gynecology; Visit Provider Obstetrics & Gynecology
PROC: 10D00Z1 Extraction of Products of Conception, Low, Open Approach (ICD-10-PCS; CPT 59514; principal; 2022-12-30 17:30)
DX: O34.211 Maternal care for low transverse scar from previous cesarean delivery; Z37.0 Single live birth; Z3A.39 39 weeks gestation of pregnancy; O40.3XX0 Polyhydramnios, third trimester, not applicable or unspecified; O99.02 Anemia complicating childbirth; D64.9 Anemia, unspecified; O36.63X0 Maternal care for excessive fetal growth, third trimester, not applicable or unspecified; O32.2XX0 Maternal care for transverse and oblique lie, not applicable or unspecified
CPT/HCPCS: 59514; 36415; 76816; 82947; 85027; 86850; 86900; 86901; 59025; 85025; 88307; J0131; J0456; J0690; J1885; J2405; J2704; J3010

== ENCOUNTER 2025-01-03 14:58 | Outpatient (CLI) | payer MEDICAID, SELFPAY ==
--- NOTE | 2025-01-03 14:45 | DI.US_ITS ---
Exam(s) US OB 1ST TRIMESTER EXAM: US OB 1ST TRIMESTER CLINICAL HISTORY: Viability, hemorrhage in early stage of , O20.9. TECHNIQUE: First trimester obstetrical ultrasound was performed. COMPARISON: US US OB DORINDA WEIGHT from 12/30/2022 FINDINGS: There is an intrauterine gestational sac which contains a viable fetus with heart rate 161 BPM and crown-rump length 54 mm corresponding to 12 weeks gestational age. There is a large subchorionic hemorrhage noted which is predominately posteriorly and measures 6.1 cm craniocaudal x 4.3 cm wide (right-left) x and 4 0.0 cm at its thickest. Maternal ovaries: Both appear unremarkable. Cervical measurement is 4 cm and closed. There is no fluid in the cul-de-sac and adnexal regions. IMPRESSION:: Single viable intrauterine gestation which is approximately 12 weeks gestational age by crown rump length measurement. There is a large subchorionic hemorrhage with measurements as above. No abnormal adnexal findings There is no free fluid evident in the cul-de-sac. DATA REPOSITORY:
== END 2025-01-03 15:18 ==
PROVIDERS: Visit Provider Obstetrics & Gynecology
DX: O20.9 Hemorrhage in early pregnancy, unspecified; Z3A.12 12 weeks gestation of pregnancy
CPT/HCPCS: 76801

== ENCOUNTER 2025-01-12 04:13 | Outpatient (CLI) | payer MEDICAID, SELFPAY ==
[2025-01-12 12:03] LABS: Abs Immature Grans 0.02 10^3/uL (0.0-0.06); HCT 34.7 % (36.0-46.0); HGB 12.3 g/dL (11.2-15.7); Immature Grans % 0.2 %; MCH 30.1 pg (27.0-33.0); MCHC 35.4 % (32.0-36.0); MCV 85 fL (80-95); MPV 11.2 fL (8.0-11.0); Platelet Count 176 10^3/uL (130-400); RBC 4.09 10^6/uL (3.93-5.22); RDW 13.2 % (11.7-14.6); RDW-SD 41.0 fL; WBC 9.01 10^3/uL (4.4-10.8)
[2025-01-12 12:11] LABS: Hemoglobin A1C 5.0 % (<5.7)
[2025-01-12 12:39] LABS: TSH (W/Ref FT4) 0.49 uIU/mL (0.36-3.74)
[2025-01-12 22:46] LABS: HIV-1/2 Ag & Ab Screen Negative (Negative)
[2025-01-13 09:23] LABS: Hepatitis C Ab w Rflx HCV PCR Negative (Negative)
[2025-01-13 11:52] LABS: Rubella IgG Ab (UVM) Negative (See Note)
[2025-01-16 15:49] LABS: Syphilis IgG w/Reflex Nonreactive (Nonreactive)
== END 2025-01-12 04:14 | disposition home or self-care (01) ==
LOC: LBO 04:13
PROVIDERS: Visit Provider Advanced Practice Midwife
DX: Z34.91 Encounter for supervision of normal pregnancy, unspecified, first trimester (principal)
CPT/HCPCS: 36415; 86787; 86803; 86850; 86900; 86901; 87340; 87389; 83036; 84443; 85025; 86762; 86780

== ENCOUNTER 2025-01-12 11:24 | Outpatient (REF) | payer MEDICAID, SELFPAY ==
[2025-01-13 12:35] LABS: Chlamydia Result Negative (Negative); GC Result Negative (Negative)
== END 2025-01-12 11:25 | disposition home or self-care (01) ==
LOC: LBN 11:24
PROVIDERS: Visit Provider Advanced Practice Midwife
DX: Z34.91 Encounter for supervision of normal pregnancy, unspecified, first trimester (principal)
CPT/HCPCS: 87491; 87591; 87086

== ENCOUNTER 2025-04-20 01:46 | Outpatient (CLI) | payer MEDICAID, SELFPAY ==
[2025-04-20 15:27] LABS: Abs Immature Grans 0.14 10^3/uL (0.0-0.06); HCT 34.1 % (36.0-46.0); HGB 11.7 g/dL (11.2-15.7); Immature Grans % 1.1 %; MCH 30.2 pg (27.0-33.0); MCHC 34.3 % (32.0-36.0); MCV 88 fL (80-95); MPV 10.6 fL (8.0-11.0); Platelet Count 170 10^3/uL (130-400); RBC 3.87 10^6/uL (3.93-5.22); RDW 13.4 % (11.7-14.6); RDW-SD 43.0 fL; WBC 13.13 10^3/uL (4.4-10.8)
[2025-04-20 15:50] LABS: Glucose,1 Hr (Glucola) 138 mg/dL (80-140)
== END 2025-04-20 01:47 | disposition home or self-care (01) ==
LOC: LBO 01:46
PROVIDERS: Visit Provider Obstetrics & Gynecology
DX: Z34.93 Encounter for supervision of normal pregnancy, unspecified, third trimester (principal); O09.523 Supervision of elderly multigravida, third trimester
CPT/HCPCS: 36415; 82950; 85025

== ENCOUNTER 2025-04-28 01:39 | Outpatient (CLI) | payer MEDICAID, SELFPAY ==
[2025-04-28 10:50] LABS: Glucose,1 Hr (Glucola) 93 mg/dL (80-140)
== END 2025-04-28 01:40 | disposition home or self-care (01) ==
LOC: LBO 01:39
PROVIDERS: Visit Provider Obstetrics & Gynecology
DX: Z34.93 Encounter for supervision of normal pregnancy, unspecified, third trimester (principal)
CPT/HCPCS: 36415; 82950